=== PATIENT | female | born 1950 ===

== ENCOUNTER 2017-01-16 13:53 | Emergency (ER) | payer MEDICARE, MEDICAID ==
[2017-01-16 13:54] VITALS: BMI 21.2
[2017-01-16 14:02] VITALS: BP 167/74; PULSE 74; RESP 15; TEMP 99; O2SAT 99
--- NOTE | 2017-01-16 14:16 | C.PDOC ---
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 Patient states she accidentally struck a wine glass, cutting the palm of right hand. Reports of a laceration. Patient states she is on Plavix. Denies FB sensations, weakness or numbness. Patient is left handed. 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 ACCIDENTALLY STRUCK WINE GLASS, CUT PALM OF R HAND. DENIES FB SENSATION. CO LACERATION. ON PLAVIX. +L HANDED. NO OTHER ASSOC INJURY OR SX. 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 EXAM NAD EXT R HAND NO DEFORM. NO TENDON DEFORM SKIN +LACERATION MID PALMAR SURFACE R HAND ULNAR SIDE. MIN ACTIVE BLEEDING. NEURO INTACT Time Seen by Provider: 01/16/17 14:16 Chief Complaint (Nursing): Abnormal Skin Integrity History Per: Patient Onset/Duration Of Symptoms: Sudden Onset (RESEARCH ADMINISTRATOR) Past Medical History Reviewed: Historical Data, Nursing Documentation, Vital Signs Vital Signs: Last Vital Signs Temp 99.0 F 01/16/17 14:00 Pulse 74 01/16/17 14:00 Resp 15 01/16/17 14:00 BP 167/74 H 01/16/17 14:00 Pulse Ox 99 01/16/17 14:44 - Medical History PMH: Asthma, HTN, Hypercholesterolemia, Osteoporosis, Peripheral Edema ( Sometimes not at present) - [facility] Procedures DILATION OF LEFT FEMORAL ARTERY, PERCUTANEOUS APPROACH (05/22/16) EXTIRPATION OF MATTER FROM L FEM ART, PERC APPROACH (05/22/16) INTRODUCE OF OTH THROMBOLYTIC INTO PERIPH ART, PERC APPROACH (05/22/16) Family History: States: No Known Family Hx - Social History Hx Alcohol Use: No Hx Substance Use: No Review Of Systems Except As Marked, All Systems Reviewed And Found Negative. Skin: Positive for: Other (Right hand laceration ) Neurological: Negative for: Weakness, Numbness Physical Exam - Physical Exam Appears: Well, Non-toxic, No Acute Distress Skin: Warm, Dry, No Rash Head: Atraumatic, Normacephalic Oral Mucosa: Moist Chest: Symmetrical, No Tenderness Cardiovascular: Rhythm Regular, No Murmur Respiratory: Normal Breath Sounds, No Rales, No Rhonchi, No Stridor, No Wheezing Extremity: Capillary Refill (<2), No Deformity, Other (Right Hand - No tendon deformity. Laceration to the mid rodriguez surface, ulnar side. Minimal active bleeding. ) Neurological/Psych: Oriented x3, Normal Speech, Normal Motor, Normal Sensation ED Course And Treatment O2 Sat by Pulse Oximetry: 99 Laceration - Laceration Repair No standard instances Wound Length (In cm): 4 Description Of Wound: Irregular, Stellate Anesthesia: Lidocaine 2%, With Epi Wound Examination: Irrigated With Saline, No FB With Wound Exploration, No Tendon Injury With Wound Exploration Wound Debridement/Revision: Wound Debrided, Wound Margins Revised Wound Closure: Suture Suture Technique And Material Used: Prolene Wound Complexity: Simple (4) Medical Decision Making Medical Decision Making: PLAN: * Tetanus IM Disposition Counseled Patient/Family Regarding: Diagnosis, Need For Followup - Disposition Referrals: Ivon Chavez MD [Primary Care Provider] - Disposition: HOME/ ROUTINE Disposition Time: 15:02 Condition: IMPROVED Additional Instructions: RETURN 7 DAYS FOR SUTURE REMOVAL. NEOSPORIN TO AFFECTED AREA TWICE DAILY. MOTRIN TYLENOL NEEDED/ DIRECTED FOR PAIN. APPLY FIRM PRESSURE FOR 20 MINS IF BLEEDING. RETURN IF WORSENING SYMPTOMS. Instructions: Care For Your Stitches (ED) Print Language: [place] - Clinical Impression Clinical Impression: Hand laceration - Scribe Statement The provider has reviewed the documentation as recorded by the Scribe Antonietta Rao Provider Attestation: All medical record entries made by the Quanibe were at my direction and personally dictated by me. I have reviewed the chart and agree that the record accurately reflects my personal performance of the history, physical exam, medical decision making, and the department course for this patient. I have also personally directed, reviewed, and agree with the discharge instructions and disposition.
[2017-01-16] MEDS ORDERED: Tetanus/Diphtheria Toxoids 0.5 ml Syringe IM ONE ×2 (14:29→14:33)
[2017-01-16] MEDS ORDERED: Lidocaine 2% w Epi 1:100,000 Inj IJ ONE ×2 (14:29→14:32)
[2017-01-16] MEDS ORDERED: Bacitracin 500 Units/gm Oint Foilpak UD TOP ONE (15:02)
[2017-01-16] MEDS ORDERED: Bacitracin 500 Units/gm Oint Foilpak UD ONE (15:05)
== END 2017-01-16 15:26 | disposition home or self-care (01) ==
LOC: C.ER 13:53
DX: S61.411A Laceration without foreign body of right hand, initial encounter (principal); W25.XXXA Contact with sharp glass, initial encounter; Y93.89 Activity, other specified; Y92.89 Other specified places as the place of occurrence of the external cause